=== PATIENT | male | born 1955 | race Caucasian/White ===

== ENCOUNTER 2020-06-21 11:21 | Outpatient (CLI) | payer OTHER | END 2020-06-21 11:24 | disposition home or self-care (01) | LOC: SONOGRAMA 11:21 | PROVIDERS: ATTEND Pathology Anatomic Pathology & Clinical Pathology | DX: E04.1 Nontoxic single thyroid nodule (principal) ==

== ENCOUNTER 2020-10-28 13:49 | Outpatient (CLI) | payer OTHER ==
[~2020-10-28 13:49] MED LIST: COZAAR50 MG PO; TAMS0.4C PO
== END 2020-10-28 13:52 | disposition home or self-care (01) ==
LOC: NUCLEAR 13:49
PROVIDERS: ATTEND Internal Medicine Sports Medicine
DX: C73 Malignant neoplasm of thyroid gland (principal); E89.0 Postprocedural hypothyroidism
CPT/HCPCS: 79005; A9517

== ENCOUNTER 2020-11-01 12:54 | Outpatient (CLI) | payer OTHER | END 2020-11-01 12:55 | disposition home or self-care (01) | LOC: NUCLEAR 12:54 | PROVIDERS: ATTEND Internal Medicine Sports Medicine | DX: C73 Malignant neoplasm of thyroid gland (principal); E89.0 Postprocedural hypothyroidism | CPT/HCPCS: 78013; A9512 ==